=== PATIENT | female | born 1960 | race Caucasian/White ===

== ENCOUNTER 2023-06-07 16:51 | Outpatient (REF) | payer BC, SELFPAY ==
[2023-06-07 21:07] LABS: Source Nasal/Nares
[2023-06-07 22:15] LABS: COVID-19 PCR Negative (Negative)
== END 2023-06-07 16:52 | disposition home or self-care (01) ==
LOC: LBN 16:51
PROVIDERS: Visit Provider Physician Assistant Medical
DX: Z11.52 Encounter for screening for COVID-19 (principal); R09.89 Other specified symptoms and signs involving the circulatory and respiratory systems
CPT/HCPCS: 87635

== ENCOUNTER 2024-09-13 14:13 | Emergency (ER) | payer MEDICARE, BC, SELFPAY ==
[2024-09-13 14:14] VITALS: BP 155/89; PULSE 85; RESP 14; TEMP 36.2; O2SAT 98
--- NOTE | 2024-09-13 14:26 | ED.GENADUL_ITS ---
Discharge Plan Disposition Patient Disposition: Home Discharge Details Clinical Impression: Injury of left rotator cuff Primary Care Provider: MARGAUX KINGSLEY ED Provider: Phyllis Oviedo Home Meds and New Rx's Prescriptions: No Action gabapentin 300 mg capsule 300 mg PO BID Patient Comments: TAKE ONE CAPSULE BY MOUTH TWICE A DAY aspirin [Adult Aspirin Regimen] 81 mg tablet,delayed release (DR/EC) 81 mg PO DAILY cyclobenzaprine 10 mg tablet 10 mg PO ONCE PRN Patient Comments: TAKE ONE TABLET BY MOUTH THREE TIMES A DAY NEEDED FOR MUSCLE SPASMS melatonin 12 mg tablet 12 mg PO HS PRN Discharge Instructions Additional Instructions: Please call [facility] orthopedics Monday to schedule follow-up appointment. I encourage you to use the sling for comfort. You may use Tylenol and ibuprofen as needed. Ice every hour for 15 to 20 minutes at a time. Return to emergency care if you develop new numbness/tingling in your arm, swelling in your arm, severe pain to your shoulder that is new, or if you are very worried and need to be rechecked again immediately. Referrals: [facility] [Provider Group] HPI General Date/Time Provider Initiated Documentation: 09/13/24 14:25 . HPI Narrative: Mala is a 64year old female who presents to the emergency department today for evaluation of left shoulder pain. She reports she was walking her dog this afternoon and the dog pulled the leash while reacting to another dog approaching. She felt a pop and immediate pain. She denies distal numbness/tingling. Has full painless range of motion of arm below elbow, but says that she is unable to actively lift her left arm at the shoulder. She does have a significant history of rotator cuff injury bilaterally. She denies associated neck pain. Denies other significant past medical history other than a lumbar and cervical degenerative disc issues (being managed by PT). She is left-handed Physical exam remarkable for decreased active range of motion to left arm, patient is not able to lift arm independently. She does have limited active passive range of motion as well, approximately 75 degrees of flexion and limited abduction. Radial pulses intact, warm extremities. Sensation fully intact. Painless range of motion of lower elbow. No pain palpation of shoulder, humerus, or elbow. Full painless range of motion of neck. D/dx includes but is not limited to: Rotator cuff injury, labral tear, other ligamentous/soft tissue injury. Low suspicion for fracture or dislocation. I independently interpreted the following tests: Left shoulder x-ray, no obvious dislocation or bony abnormality noted. This was confirmed by radiologist While in the emergency department, Mala received sling for comfort. Referral placed to orthopedics Reviewed discharge instructions with patient, including symptomatic management and red flags indicating need for return to emergency care Related Data Home Medications ?Medication ?Instructions ?Recorded ?Confirmed aspirin 81 mg tablet,delayed 81 mg PO DAILY 09/13/24 09/13/24 release (Adult Aspirin Regimen) cyclobenzaprine 10 mg tablet 10 mg PO ONCE PRN 09/13/24 09/13/24 gabapentin 300 mg capsule 300 mg PO BID 09/13/24 09/13/24 melatonin 12 mg tablet 12 mg PO HS PRN 09/13/24 09/13/24 Allergies Allergy/AdvReac Type Severity Reaction Status Date / Time No Known Allergies Allergy Unverified 09/13/24 14:20 General Stated Complaint: Orthopedic DARNELL: 4 Review of Systems Narrative: See HPI Exam Const General: cooperative, healthy appearing, comfortable, no acute distress and well developed Nutritional Appearance: average body habitus and well nourished Orientation: alert and oriented x3 Neck Neck: normal visual inspection and full ROM Skin General skin exam: no rashes or lesions noted Neuro General: tone normal Sensory Exam: no sensory deficits noted Extrem Right upper extremity: normal to inspection and full ROM Left upper extremity: normal to inspection and shoulder/upper arm Details: axillary nerve sensory function normal and abnormal ROM Details: with range as follows (no active ROM); no tenderness and no swelling Course Vital Signs Vital signs: Vital Signs Pulse 85 09/13/24 14:14 Respiratory Rate 14 09/13/24 14:14 Blood Pressure 155/89 H 09/13/24 14:14 Pulse Oximetry 98 09/13/24 14:14 Pulse 85 09/13/24 14:14 Respiratory Rate 14 09/13/24 14:14 Blood Pressure 155/89 H 09/13/24 14:14 Blood Pressure Position Sitting 09/13/24 14:14 Pulse Oximetry 98 09/13/24 14:14 Oxygen Delivery Method Room Air 09/13/24 14:14 Oxygen Flow Rate 0 09/13/24 14:14 Pain Level 7 09/13/24 14:14 Medical Decision Making Imaging Data Radiologic Study: Radiologist's impression: Exam(s) XR SHOULDER LT COMPLETE 2+V EXAM: XR SHOULDER LT COMPLETE 2+V CLINICAL HISTORY: L shoulder pain, no active ROM. TECHNIQUE: 2D digital imaging was performed of the left shoulder. Five images were obtained. AP, Grashey, Y-view and axillary views were obtained. COMPARISON: No exams were available for comparison FINDINGS: BONES: No acute fracture is present. No bony destructive lesion is seen. JOINTS: No dislocation present. There are degenerative changes seen at the acromioclavicular joint. The glenohumeral joint is well maintained. SOFT TISSUE: Normal. IMPRESSION: Mild degenerative changes of the acromioclavicular joint. Quality:SDOH Health Related Social Needs: No Data to Display PFSH All Active Problems (Updated 09/13/24 @ 15:29 by Phyllis Mendez) Injury of left rotator cuff (Acute) Social History Smoking/Tobacco Use Status: Never Smoking risk assessment performed?: Yes Alcohol Intake: never Substance use type: does not use
--- NOTE | 2024-09-13 15:02 | DI.RAD_ITS ---
Exam(s) XR SHOULDER LT COMPLETE 2+V EXAM: XR SHOULDER LT COMPLETE 2+V CLINICAL HISTORY: L shoulder pain, no active ROM. TECHNIQUE: 2D digital imaging was performed of the left shoulder. Five images were obtained. AP, G rashey, Y-view and axillary views were obtained. COMPARISON: No exams were available for comparison FINDINGS: BONES: No acute fracture is present. No bony destructive lesion is seen. JOINTS: No dislocation present. There are degenerative changes seen at the acromioclavicular joint. The glenohumeral joint is well maintained. SOFT TISSUE: Normal. IMPRESSION: Mild degenerative changes of the acromioclavicular joint. DATA REPOSITORY: RADIATION DOSE DELIVERED:
[2024-09-13 15:43] VITALS: BP 145/90; PULSE 85; RESP 14; O2SAT 98
--- NOTE | 2024-09-14 09:25 | NUR.NOTE ---
Access chart to get the discharge diagnosis for [facility] billing requisition. Nursing Note:
== END 2024-09-13 15:44 | disposition home or self-care (01) ==
PROVIDERS: Emergency Provider Nurse Practitioner Family; PCP Family Medicine
DX: S46.002A Unspecified injury of muscle(s) and tendon(s) of the rotator cuff of left shoulder, initial encounter (principal); X50.9XXA Other and unspecified overexertion or strenuous movements or postures, initial encounter; Y93.K1 Activity, walking an animal; Y92.89 Other specified places as the place of occurrence of the external cause; Z79.82 Long term (current) use of aspirin
CPT/HCPCS: 99283; 73030

== ENCOUNTER → 2024-09-24 08:01 | Outpatient (BNVA) | payer MEDICARE, BC, SELFPAY | PROVIDERS: PCP Family Medicine; Referring Provider Family Medicine; Visit Provider Student in an Organized Health Care Education/Training Program | DX: M75.102 Unspecified rotator cuff tear or rupture of left shoulder, not specified as traumatic (principal) | CPT/HCPCS: 99213 ==

== ENCOUNTER → 2024-11-19 12:57 | Outpatient (BNVA) | payer MEDICARE, BC, SELFPAY | PROVIDERS: PCP Family Medicine; Referring Provider Family Medicine; Visit Provider Student in an Organized Health Care Education/Training Program | DX: M75.102 Unspecified rotator cuff tear or rupture of left shoulder, not specified as traumatic (principal) | CPT/HCPCS: 99214 ==

== ENCOUNTER 2024-12-02 01:57 | Outpatient (CLI) | payer MEDICARE, BC, SELFPAY ==
--- NOTE | 2024-12-02 07:30 | DI.CT_ITS ---
Exam(s) CT UPPER EXTREMITY LT WO EXAM: CT UPPER EXTREMITY LT WO CLINICAL HISTORY: SURGICAL PLANNING,lt rotator cuff tear,m75.102 TECHNIQUE: Imaging Protocol: Axial computed tomography images with coronal and sagittal reformatted images were created and reviewed. CONTRAST MATERIAL: Intravenous: None COMPARISON: CR XR SHOULDER LT COMPLETE 2+V from 09/13/2024 MR MRI, UPPER EXT, JOINT S/ CONTRA from 09/20/2024 FINDINGS: OSSEOUS: There are mild degenerative changes in the acromioclavicular joint. There is mild osteophytic ridging on the undersurface of the a chromium. There is a small 2 millimeter para-articular calcification [place] bjacent to the clavicular side of the AC joint. There is no evidence of os acromial. There is element of moderate superior and posterior subluxation of the humeral head in the osseous gl enoid fossa which is most probably related to the fact that there is a large full-thickness tear of t he supra and infraspinatus tendons as seen on recent outside MRI of September 2024. There is no gleno humeral joint space narrowing but there is a small calcific density off the posterior aspect of the s uperior half of the osseous glenoid which measures approximately 8 x 2 mm. This is suspicious for an avulsion fracture fragment such as quotes ???reverse Bankart-type??? injury. There does not appear to be an obvious ???reverse Hill-Sachs deformity??? at the anterior humeral head level. No osseous lesions. Bone density normal. The coracoid process is intact. IMPRESSION: There is an 8 x 2 mm fracture fragment off the posterior superior aspect of the osseous glenoid measu ring 8 x 2 mm and there is also an element of mild superior-posterior subluxation of the humeral head in the osseous glenoid. This is probably a ???reverse Bankart-type??? injury related to the recent trauma. I note that outside MRI report of 09/20/2024 also revealed element of tearing of the posteri or labrum in addition to a large full-thickness rotator cuff tear involving both the supraspinatus an d infraspinatus. RADIATION DOSE DELIVERED: 163.06mGy.cm Total DLP DATA REPOSITORY: All CT scans at this facility are submitted to the National Radiology Data Registry (NRDR) Dose Index Registry (DIR) with the [employer] (ACR). RADIATION OPTIMIZATION: All CT scans at this facility use at least one of these dose optimization te chniques: automated exposure control; mA and/or kV adjustment per patient size (includes targeted exa ms where dose is matched to clinical indication); or iterative reconstruction.
== END 2024-12-02 02:17 ==
LOC: DI 01:58
PROVIDERS: PCP Family Medicine; Visit Provider Student in an Organized Health Care Education/Training Program
DX: M75.122 Complete rotator cuff tear or rupture of left shoulder, not specified as traumatic (principal)
CPT/HCPCS: 73200

== ENCOUNTER → 2024-12-11 13:37 | Outpatient (BNVA) | payer MEDICARE, BC, SELFPAY | PROVIDERS: PCP Family Medicine; Referring Provider Family Medicine; Visit Provider Student in an Organized Health Care Education/Training Program | DX: M75.102 Unspecified rotator cuff tear or rupture of left shoulder, not specified as traumatic (principal) | CPT/HCPCS: 99214 ==

== ENCOUNTER 2024-12-19 09:59 | Day surgery (SDC) | payer MEDICARE, BC, SELFPAY ==
--- NOTE | 2024-12-18 15:46 | W.PM.DSUDISC ---
Date of service: 12/19/24 Discharge Plan Disposition Patient Disposition: Home Condition: Stable Discharge Details Attending Provider: Pola Buchanan Primary Care Provider: MARGAUX KINGSLEY Home Meds and New Rx's Prescriptions: New naproxen 250 mg tablet 250 - 500 mg PO BID PRN (Reason: moderate pain and swelling) Qty: 40 0RF oxycodone 5 mg tablet 5 - 10 mg PO .q4-6h MDD 30 mg PRN (Reason: severe pain) Qty: 18 0RF Continued acetaminophen 500 mg capsule 1,000 mg PO TID PRN gabapentin 300 mg capsule 300 mg PO BID Patient Comments: TAKE ONE CAPSULE BY MOUTH TWICE A DAY aspirin [Adult Aspirin Regimen] 81 mg tablet,delayed release (DR/EC) 81 mg PO DAILY cyclobenzaprine 10 mg tablet 10 mg PO ONCE PRN Patient Comments: TAKE ONE TABLET BY MOUTH THREE TIMES A DAY NEEDED FOR MUSCLE SPASMS melatonin 12 mg tablet 12 mg PO HS PRN Discontinued naproxen sodium 220 mg capsule 220 mg PO BID PRN No Action estradiol 0.025 mg/24 hr patch semiweekly Discharge Instructions Additional Instructions: Surgery: Left reverse total shoulder arthroplasty (subscapularis repair) with biceps tenodesis 12/19/24 Activity: Do not lift anything heavier than a coffee. You should keep your arm at your side in a neutral position at all times except for gentle range of motion exercises, physical therapy, and essential activities. You should use the sling whenever you are out of the house. At home it is best to remove the sling and rest the arm on a pillow at your side or support the operative side with your other hand. A physical therapy prescription will be sent electronically to start in about 3 weeks. CONSERVATIVE/subscap?repair protocol. Prescriptions: Resume home Aspirin 81 mg tomorrow Naproxen 250 mg take 1-2 daily with a meal as needed for moderate pain Oxycodone 5 mg take 1-2 every 4-6 hours as needed for severe pain You may use [id number] Tylenol (acetaminophen) as needed for mild pain. These pain medications may be taken all at once or in different combinations as needed. Also, recommend Colace (docusate) as a stool softener as surgery and pain medicine cause constipation. You may try [id number] diphenhydramine (Benadryl) 25-50 mg nightly as a sleep aid Dressings: Leave dressing in place until follow-up. Keep clean and dry at all times. No showers please. Follow-up: 10-[address] Buchanan You may take off the leg compression stockings this evening at home. You may also leave them on a few days longer if you have a history of leg swelling or edema. Please call the office during business hours with any questions or concerns. Let us know right away if you develop any redness, drainage, fevers, chest pain, or trouble breathing. Do not drink alcohol or drive for at least 24 hours after anesthesia. Discharge Orders Discharge Orders: Discharge Order (Routine); Ordered 12/19/24 Ordered By: Annemarie Pisano DS: Diagnosis Discharge Diagnosis (1) Left rotator cuff tear: Status: Acute
[2024-12-19] VITALS (18 sets, daily range): BP systolic 104–184; BP diastolic 65–101; PULSE 79–90; RESP 10–25; TEMP 36–36.7; O2SAT 92–98; BMI 23.6
--- NOTE | 2024-12-19 08:53 | ROE_ITS ---
Operative Note Operative Note PRE-OP DIAGNOSIS: Left 1. Massive rotator cuff tear 2. Long head of the biceps tendinopathy POST-OP DIAGNOSIS: same PROCEDURE: Left 1. Reverse total shoulder arthroplasty, CPT # 60076 2. Open biceps tenodesis, CPT # 83651 The nursing assistants teacher was medically required as this procedure involves retraction, protection of neurovascular structures, and manipulation of multiple instruments and implants at the same time, which cannot be done without a skilled nursing assistants teacher. SURGEON: Pola Buchanan SATURATION EQUIPMENT OPERATOR: Annemarie Pisano ANESTHESIA TYPE: Local By Surgeon, General LMA/ETT and Primary Nerve Block Refer to Anesthesia Record ESTIMATED BLOOD LOSS: 75 COMPLICATIONS: None Patient was transported to: PACU Patient's condition: stable Implants: [employer] modular glenoid system baseplate 24 mm, 10 degree full augment [employer] modular glenoid system central post 20 mm [employer] modular glenoid system peripheral locking screws 32 mm inferior, 28 mm superior, 16 mm posterior, 16 mm anterior [employer] modular glenoid system glenosphere 36 +4 mm lateralized [employer] humeral stem 135 degrees size 6 [employer] suture cup size 36 posterior offset [employer] spacer size 36+9 mm [employer] humeral insert size 36+3 mm Indications: Please see complete medical record for details. Findings: Intact subscapularis, significant long head biceps tenosynovitis at the superior aspect of the bicipital groove, massive irreparable rotator cuff tear with near?complete deficiency supraspinatus, infraspinatus, and significant retraction with limited tendon available for any repair with poor tendon excursion. Far posterior rotator cuff present likely teres. Relatively preserved glenohumeral cartilage. Very diminutive proximal humerus and glenoid. Procedure Description: In the operating room, general anesthesia was induced. The patient was positioned beachchair on the operating room table. All bony prominences were well-padded. Preoperative antibiotics were administered. The shoulder was prepped and draped in the usual sterile fashion for shoulder arthroplasty. The correct patient, procedure, and side of the procedure were all verified prior to incision. The deltopectoral approach was preinjected with 0.25% bupivacaine containing epinephrine and taken to the anterior shoulder. Care was taken to bluntly dissect the interval between the deltoid and pectoralis major muscles and to identify the cephalic vein within its fat stripe. The the vein was mobilized medially. Subdeltoid space and conjoined tendon were freed of adhesions. The long head of the biceps tendon was identified just lateral to the lesser tuberosity. The uppermost margin of the pectoralis major tendon was released from the proximal humerus. The long head of the biceps tendon was tenodesed in situ using SutureTape in a [id number] fashion securing it superior margin the pectoralis major tendon. The biceps tendon was amputated and followed proximally to identify the rotator interval. A subscapularis peel was performed taking care to release the entire tendon in a full-thickness fashion from superior to inferior and lateral to medial while bringing the arm gradually into external rotation. Care was taken to avoid the axillary nerve by only working on the bone inferiorly and medially. The subscapularis was tagged using SutureTape in a Pepito-Crow fashion and traction used confirm appropriate mobilization of the subscapularis tendon after gentle blunt dissection was used to free up the space anterior and posterior to it. There was a small thin supraspinatus remnant anteriorly by the biceps that was debrided revealing an essentially bald majority greater tuberosity with some rotator cuff identified far far posteriorly. Greater than 5 cm tear size irreparable. Appropriate coagulation was achieved especially interiorly. The anatomic neck was cut using an oscillating saw with the humeral head bone brought back table in case there was a need for future bone grafting. The proximal humerus was delivered from the wound with adduction and external rotation. The proximal humeral protection plate was used to provisionally confirm suture cup and glenosphere size. Reamers were started appropriately posterior to the bicipital groove taking care to maintain in line approach with the humeral canal. Sequential reaming was done from size 5 up to size 6. Next, the broaches were sequentially used to open the proximal humerus starting with a size 4 and going up to size 5 initially and then 6 after preparing the glenoid and sunk to the appropriate depth while maintaining approximately 30 degrees retroversion. There was good metaphyseal fit and rotational control of the proximal humerus with this size. The posterior offset guide was used to ream for the suture cup with a size 5 initially and then confirmed once the 6 stem had been placed after completing the glenoid. Attention was then turned to the glenoid and retractors were placed and a circumferential release performed using the long head of the biceps remnant to remove soft tissue about the glenoid rim. Care was taken inferiorly to work on bone only between 5 and 7:00 o'clock and bluntly elevate tissues inferiorly. The VIP guide was placed on the glenoid and used to confirm placement and trajectory of the central guidepin. The guidepin was inserted and advanced just through the far cortex ensuring adequate central fixation length. The glenoid was prepared according to psychiatric clinical nurse specialist specifications for a augmented baseplate and central post. The baseplate was fully impacted onto the glenoid surface. The locking guide was then used to drill and place appropriately lengthed inferior, superior, anterior, and posterior screws. The [id number] ream er was used to confirm adequate peripheral reaming. The glenosphere was applied with the micro paleontologist and then impacted to engage the Murdock taper. It was then locked with appropriate countersinking of the setscrew. The glenosphere was inspected and found to have good fit, appropriate positioning, and no soft tissue or bony impingement. There was some slight soft tissue impingement inferiorly, but overall very good considering the extremely diminutive glenoid size and need for overhang of the components. Attention was then turned back to the proximal humerus. The humeral trial cup was connected. Trialing was commenced with +3 mm liner. The shoulder was reduced and taken through range of motion. Trial components were built up to +9 mm spacer and +3 mm liner to achieve good stability and appropriate tension on the deltoid and conjoined tension. The trial components were removed from the proximal humerus. The wound was copiously irrigated with normal saline. A 2 mm drill was used to drill 2 drill holes in the bicipital groove for later subscapularis repair. The the proximal humeral stem and suture cup were assembled and brought over the proximal humerus. Suture tapes were placed superiorly inferiorly at the medial and lateral aspect of the suture cup. The lateral tapes were brought out the drill holes. A small amount of vancomycin powder was distributed in the proximal h umerus. The humeral component and suture cup were impacted into place. The trial spacer and liner were added, and the shoulder was reduced and range of motion, stability, and tension confirmed to be appropriate. The final spacer and liner were then connected, and range of motion, stability, and tension confirmed. The shoulder was copiously irrigated with Betadine and normal saline. Vancomycin powder was distributed deeply about the shoulder and through subcutaneous tissues. The arm was placed in about 30 degrees of external rotation. The subscapularis was reduced and repaired using the pairs of SutureTape in a speed bridge type configuration. The superior margin of the subscapularis was then additionally secured with suture tape to a more superior suture cup hole with a simple stitch. The arm was taken into more external rotation without any displacement of the subscapularis repair. The deltopectoral interval was well-approximated and the cephalic vein intact. Subcutaneous tissue was irrigated then closed using 2-0 Monocryl in a buried interrupted fashion. Skin was closed using 3-0 Monocryl in a buried subcuticular fashion. Skin glue was applied to the incision. A silver impregnated bandage was placed over the incision. The extremity was placed into a shoulder immobilizer. The patient awoke from anesthesia without complication and was taken to the recovery room in stable condition. Date of Procedure: 12/19/24
--- NOTE | 2024-12-19 10:55 | W.ANESPRE ---
General Info Date of Service Date Performed: 12/19/24 Height: 5 ft 6 in Weight: 66.5 kg Body Mass Index (BMI): 23.6 Surgical Procedure: Operation Date: 12/19/24 12:10 Proposed Procedure Side Surgeon p Shoulder Reverse Total Arthroplasty, Biceps Tenodesis Left Pola Buchanan MD Meds Allergies and Home Medications Allergies Allergy/AdvReac Type Severity Reaction Status Date / Time No Known Allergies Allergy Verified 12/19/24 10:12 Home Medication ?Medication ?Instructions ?Recorded aspirin 81 mg tablet,delayed 81 mg PO DAILY 09/13/24 release (Adult Aspirin Regimen) cyclobenzaprine 10 mg tablet 10 mg PO ONCE PRN 09/13/24 gabapentin 300 mg capsule 300 mg PO BID 09/13/24 melatonin 12 mg tablet 12 mg PO HS PRN 09/13/24 acetaminophen 500 mg capsule 1,000 mg PO TID PRN 11/19/24 naproxen 250 mg tablet 250 - 500 mg (1 - 2 x 250 mg) PO 12/18/24 BID PRN moderate pain and swelling #40 tabs oxycodone 5 mg tablet 5 - 10 mg (1 - 2 x 5 mg) PO .q4-6h 12/18/24 PRN severe pain #18 tabs estradiol 0.025 mg/24 hr 12/19/24 semiweekly transdermal patch Current Visit Medications: Current Medications Generic Name Dose Route Start Last Admin Trade Name Freq PRN Reason Stop Dose Admin Acidophilus/Pectin 1 cap 12/19/24 16:30 Lactobacillus Acidophilus Cap PO 12/19/24 16:31 DAILY ONE Ringer's Solution 1,000 mls @ 30 mls/hr 12/19/24 06:00 IV 12/19/24 23:59 INFUSION PATRICK Cefazolin Sodium/Dextrose 2 gm in 50 mls @ 100 mls/hr 12/19/24 06:00 Ancef Duplex IVPB 12/19/24 23:59 PREOP PATRICK Tranexamic Acid/Sodium Chloride 1,000 mg in 100 mls @ 600 mls/hr 12/19/24 06:00 IVPB 12/19/24 23:59 PREOP PATRICK Cefazolin Sodium/Dextrose 1 gm in 50 mls @ 100 mls/hr 12/19/24 15:30 Ancef Duplex IVPB 12/19/24 15:59 NOW ONE IV Miscellaneous Supplies 1 each 12/19/24 06:00 Iv Access IV 12/19/24 23:59 DIRECTED PATRICK Oxycodone HCl 0 mg 12/19/24 09:49 Oxycodone 5 Mg Tab PO 01/18/25 09:48 Q3H PRN PRN Pain Sodium Chloride 0 ml 12/19/24 06:00 Normal Saline Flush 10 Ml Syr IV 12/19/24 23:59 PRN PRN Sodium Chloride 0 ml 12/19/24 06:00 Normal Saline 10 Ml Vial IJ 12/19/24 23:59 DIRECTED PRN Sterile Water 0 ml 12/19/24 06:00 Water,Injection,Sterile 10 Ml Vial IJ 12/19/24 23:59 DIRECTED PRN PFSH Active Problems Active Problems: Problem Status Onset Code Left rotator cuff tear Acute M75.102 Medical History Medical History Spondylosis Arthritis DJD (degenerative joint disease) Surgical History Surgical History History of endometrial ablation History of bladder surgery hx of sling procedure Hx of reduction mammoplasty History of LAVH Tobacco Smoking/Tobacco Use Status: Never Passive smoking exposure: No Second hand exposure: No Alcohol Alcohol Intake: current Alcohol intake frequency: holidays/special occasions only Alcohol type: wine Substance Use Substance use: Never Substance use type: does not use Counseling provided: none Vital Signs and Lab Results Vital Signs Most Recent Vital Signs in EMR: Most Recent Vital Signs Temp Pulse Resp BP Pulse Ox 36.7 C 89 16 184/101 H 98 12/19/24 10:04 12/19/24 10:04 12/19/24 10:04 12/19/24 10:04 12/19/24 10:04 Lab Results Blood Type / Crossmatch: No Data to Display Complete Blood Count: No Data to Display Complete Metabolic Panel: No Data to Display Liver Function Panel: No Data to Display Coagulation Panel: No Data to Display Cardiac Panel: No Data to Display Arterial Blood Gas: No Data to Display Venous Blood Gas: No Data to Display Pancreas Panel: No Data to Display Thyroid Panel: No Data to Display Infectious Disease: No Data to Display Blood Cultures: No Data to Display Toxicology Panel: No Data to Display Anesthesia Assessment and Plan Anesthesia History Personal History: No History of Anesthesia Complications Family History: No Family History of Anesthesia Complications Exercise Tolerance Exercise Tolerance: Metabolic Equivalents>4 Pertinent Negatives Pertinent Negatives: No Symptoms of GERD, No Major Cardiovascular Symptoms or Complaints, No Major Pulmonary Symptoms or Complaints and No History of CVA/TIA Cardiac & Pulmonary Exam Cardiac Exam: Normal S1/S2 Heart Sounds Pulmonary Exam: Clear Bilateral Breath Sounds and No cough or Cold Implantable Cardiac Device Does patient have a Pacemaker or an ICD?: No Airway Exam Known Difficult Airway: No Mallampati Class: 2 Mouth Opening: Normal (> 3cm) Thyromental Distance: Greater than 3 cm Neck Range of Motion: Full ROM Neck Circumference: Normal Teeth Condition: Normal Dentition ASA Classification ASA Score: ASA 2 Emergency Case?: No NPO Status NPO Status: NPO Clears >2 hours, Solids >8 hours Anesthesia Plan Resuscitation Status: Full Code Anesthesia Technique: General Anesthesia Airway Planned: Endotracheal Tube Pain Management: Surgeon and patient request nerve block Monitors Used: Standard Monitors
[2024-12-19] MEDS: Lactated Ringers 1,000 ML 30 ML IV (11:00)
--- NOTE | 2024-12-19 11:50 | ANES.NERVE_ITS ---
Nerve Block Single Injection Procedure Date and Time Date Performed: 12/19/24 Procedure Start: 11:08 Location Where Procedure Performed Procedure Location: Day Surgery Unit Reason Performed: Postoperative Analgesia Requesting Provider: Pola Buchanan Timeout Performed Timeout Performed: Yes Monitoring Used ECG, Blood Pressure and SpO2 Sterility Sterility: Hand Hygiene, Surgical Mask, Sterile Gloves, Eye Protection and Chlorhexidine Sedation Given During Procedure Sedation Given (Indicate Dose Given): Versed IV Dose:: 2 mg Patient Mental Status Patient Mental Status: Sedate with meaningful communication Nerve Block 1st Nerve Block: Laterality: Left Block Type: Interscalene Ultrasound Image Saved?: Yes Needle / Catheter Used: 80mm SonoPlex II Local Anesthetic Bolus (Indicate Dose Given): Lidocaine used for local infiltration of skin, Injected in 3-5ml increments after negative blood aspiration, Bupivacaine 0.25% Dose:: 6.5 ml and Exparel Dose:: 6.5 ml Additives (Indicate Dose Given): None Ultrasound: Sterile probe cover and gel used Nerve Stimulator: Supplement to Ultrasound use and No twitch or parasthesia noted < 0.5 mA Paresthesia: None Procedure Tolerated: No Complications and Patient tolerated well Procedure Outcome: Successful Procedure Comment: Duong's Syndrome noted; patient education provided Performed By: Levon Arias Supervised By: Kayy Dan 2nd Nerve Block: Laterality: Left Block Type: Superficial Cervical Plexus Ultrasound Image Saved?: Yes Needle / Catheter Used: 80mm SonoPlex II Local Anesthetic Bolus (Indicate Dose Given): Lidocaine used for local infiltration of skin, Injected in 3-5ml increments after negative blood aspiration, Bupivacaine 0.25% Dose:: 3.5 ml and Exparel Dose:: 3.5 ml Additives (Indicate Dose Given): None Ultrasound: Sterile probe cover and gel used Nerve Stimulator: Supplement to Ultrasound use and No twitch or skyla thesia noted < 0.5 mA Paresthesia: None Procedure Tolerated: No Complications and Patient tolerated well Procedure Outcome: Successful Performed By: Levon Arias Supervised By: Kayy Dan
--- NOTE | 2024-12-19 11:57 | NUR.NOTE ---
Nursing Note: [id number] Anesthesia requested to assess patient for Duong's Syndrome after this RN observed patient to have droopy left eyelid. Anesthesia Odalis Dan promptly assessed and explained to patient the condition.
[2024-12-19] MEDS: ceFAZolin 2 GM/50 ML BAG IVPB (12:41)
[2024-12-19] MEDS: TRANEXAMIC ACID/SOD. CHL. 1,000 MG/100 ML BAG 600 MG IVPB (12:58)
[2024-12-19] MEDS: Vancomycin 1,000 MG VIAL 1000 MG (13:31)
[2024-12-19] MEDS: Bupivacaine 0.25% Pres-Free W/EPI 30 ML VIAL (13:31)
[2024-12-19] MEDS: ceFAZolin 1 GM/50 ML BAG IVPB (16:19)
--- NOTE | 2024-12-19 16:34 | DI.RAD_ITS ---
Exam(s) XR SHOULDER LT COMPLETE 2+V EXAM: XR SHOULDER LT COMPLETE 2+V INDICATION: Post-op. COMPARISON: CT CT UPPER EXTREMITY LT WO from 12/02/2024 TECHNIQUE: 2D digital imaging was performed. Two views. Portable FINDINGS: A reverse shoulder prosthesis has been placed. The alignment appears satisfactory. There is residua l postsurgical air in the soft tissues. DATA REPOSITORY: RADIATION DOSE DELIVERED:
--- NOTE | 2024-12-19 16:43 | W.ANESPOSTOP ---
Postoperative Evaluation Date, Time and Location Date Performed: 12/19/24 Time Performed: 16:43 Patient Location: PACU Vital Signs Most Recent Imported Vital Signs: Most Recent Vital Signs Temp Pulse Resp BP Pulse Ox 36.3 C L 82 16 116/69 94 12/19/24 16:25 12/19/24 16:36 12/19/24 16:36 12/19/24 16:35 12/19/24 16:36 Pain Score Most Recent Pain Score: Most Recent Pain Score Pain Level 0 12/19/24 16:39 Assessment Mental Status: Awake (Alert & Oriented to Patient Baseline) Airway and Respiratory Function: Patent airway with normal (patient baseline) respiratory exam Cardiovascular Function: Hemodynamically Stable Hydration Status: Adequately Hydrated Nausea & Vomiting: No Nausea or Vomiting Pain: Pt. Denies Any Pain Peripheral Nerve Block: Regional nerve block not resolved at time of post operative discharge
[2024-12-19] MEDS: Lactobacillus Acidophilus CAP 1 CAP PO (17:55)
== END 2024-12-19 18:01 | disposition home or self-care (01) ==
LOC: SUR 10:00
PROVIDERS: PCP Family Medicine; Visit Provider Student in an Organized Health Care Education/Training Program
PROC: (CPT 23472; principal; 2024-12-19 12:00)
DX: M12.812 Other specific arthropathies, not elsewhere classified, left shoulder (principal); M75.22 Bicipital tendinitis, left shoulder; G89.18 Other acute postprocedural pain
CPT/HCPCS: 23472; 23430; C1713; 64415; 64450; 73030; J0131; J0665; J0666; J0690; J1100; J1885; J2003; J2250; J2371; J2405; J2704; J3370; J3475

== ENCOUNTER 2024-12-31 14:44 | Outpatient (CLI) | payer MEDICARE, BC, SELFPAY ==
--- NOTE | 2024-12-31 14:35 | DI.RAD_ITS ---
Exam(s) XR SHOULDER LT COMPLETE 2+V EXAM: XR SHOULDER LT COMPLETE 2+V CLINICAL HISTORY: F/U LEFT RTSA. TECHNIQUE: 2D digital imaging was performed. Two images were obtained. Grashey and Y views were obt ained. COMPARISON: CR XR SHOULDER LT COMPLETE 2+V from 12/19/2024 FINDINGS: BONES: There are stable post operative changes of a left reverse total shoulder arthroplasty present. No fracture or dislocation. JOINTS: The orthopedic hardware is in good position. No evidence of hardware loosening. SOFT TISSUE: Postsurgical changes are seen in the soft tissues. IMPRESSION: Stable left reverse total shoulder arthroplasty. DATA REPOSITORY: RADIATION DOSE DELIVERED:
== END 2024-12-31 14:45 | disposition home or self-care (01) ==
LOC: DIORS 14:44
PROVIDERS: PCP Family Medicine; Referring Provider Family Medicine; Visit Provider Student in an Organized Health Care Education/Training Program
DX: M75.102 Unspecified rotator cuff tear or rupture of left shoulder, not specified as traumatic (principal); Z47.1 Aftercare following joint replacement surgery; Z96.612 Presence of left artificial shoulder joint
CPT/HCPCS: 99024; 73030

== ENCOUNTER → 2025-02-18 08:20 | Outpatient (BNVA) | payer MEDICARE, BC, SELFPAY | PROVIDERS: PCP Family Medicine; Referring Provider Family Medicine; Visit Provider Student in an Organized Health Care Education/Training Program | DX: Z47.89 Encounter for other orthopedic aftercare (principal); M75.102 Unspecified rotator cuff tear or rupture of left shoulder, not specified as traumatic | CPT/HCPCS: 99024 ==

== ENCOUNTER 2025-04-09 12:00 | Outpatient (CLI) | payer MEDICARE, BC, SELFPAY ==
--- NOTE | 2025-04-09 11:00 | DI.RAD_ITS ---
Exam(s) XR SHOULDER LT COMPLETE 2+V EXAM: XR SHOULDER LT COMPLETE 2+V CLINICAL HISTORY: F/U LEFT RTSA. TECHNIQUE: 2D digital imaging was performed. Two images were obtained. Grashey and Y views were obtained. COMPARISON: CR XR SHOULDER LT COMPLETE 2+V from 12/31/2024 FINDINGS: BONES: There are stable post operative changes of a left reverse total shoulder arthroplasty present. No fracture or dislocation. JOINTS: The orthopedic hardware is in good position. No evidence of hardware loosening. SOFT TISSUE: Normal. IMPRESSION: Stable left reverse total shoulder arthroplasty. DATA REPOSITORY: RADIATION DOSE DELIVERED:
== END 2025-04-09 12:01 | disposition home or self-care (01) ==
LOC: DIORS 12:04
PROVIDERS: PCP Family Medicine; Referring Provider Family Medicine; Visit Provider Student in an Organized Health Care Education/Training Program
DX: Z47.89 Encounter for other orthopedic aftercare (principal); M62.81 Muscle weakness (generalized)
CPT/HCPCS: 99213; 73030